=== PATIENT | male | born 1955 | race Caucasian/White ===

== ENCOUNTER 2021-06-10 07:25 | Day surgery (SDC) | payer MEDICARE, OTHER ==
[2021-06-10] MEDS ORDERED: Sodium Chloride 0.9% 1,000 ML IV SCH (08:00)
[2021-06-10] MEDS ORDERED: fentaNYL 100 MCG/2 ML SDV ONE (08:53)
[2021-06-10] MEDS ORDERED: Propofol 200 MG/20 ML SDV ONE (08:53)
[2021-06-10] MEDS ORDERED: Midazolam 1 MG/ML 2 ML SDV ONE (08:53)
== END 2021-06-10 10:42 | disposition home or self-care (01) ==
LOC: JP.SDS 07:25
PROVIDERS: ATTEND Surgery
DX: Z12.11 Encounter for screening for malignant neoplasm of colon (principal); D12.3 Benign neoplasm of transverse colon; K21.9 Gastro-esophageal reflux disease without esophagitis; F17.200 Nicotine dependence, unspecified, uncomplicated
CPT/HCPCS: 45380; J2250; J2704; J3010; J7030